=== PATIENT | female | born 1980 | race Caucasian/White ===

== ENCOUNTER 2016-10-03 19:40 | Emergency (ER) | payer OTHER, MEDICAID ==
--- NOTE | 2016-10-03 19:55 | EDPHY ---
H & P Time Seen by Provider: 10/03/16 20:24 HPI/ROS: CHIEF COMPLAINT: Right foot injury HISTORY OF PRESENT ILLNESS: This patient is a 35-year-old female who presents to the Emergency Department complaining of right foot pain and ecchymosis secondary to stubbing her foot into her bed this evening. She took Ibuprofen shortly following the injury without improvement to her pain. She denies paresthesias, lacerations or abrasion, or additional injuries. No history of orthopedic injuries or surgeries to her right foot. She is breast feeding. REVIEW OF SYSTEMS: A ten point review of systems was performed and is negative with the exception of the items mentioned in the HPI. Source: Patient Exam Limitations: No limitations - Personal History Tetanus Vaccine Date: 06/2011 - Medical/Surgical History Other PMH: Asthm; hx of PPD; hx of migraines; former smoker; Gallbladder out 2011; reconstruction surgery on ankle 2007; no problems with anesthesia; hx of UTI with this - Social History Smoking Status: Former smoker Additional Social History: She is here with her . They have their with them, 2 other children. She does not use tobacco or alcohol products. - Physical Exam Exam: General Appearance: Alert. Vital signs reviewed. A focused exam was performed. Respiratory: Lungs are clear to auscultation; no wheezes, rales, or rhonchi. Cardiovascular: Regular rate and rhythm; no murmur, rub, or gallop. Gastrointestinal: Abdomen is soft and nontender. Skin: Warm and dry, no rashes on exposed skin, normal color. Extremities: Tenderness at the base of the 5th toe on the right. There is a small area of ecchymoses in the webspace between the 4th and 5th toes. No obvious swelling or deformity. Neurological: Alert and oriented. Moving all four extremities easily and equally. Pulses: 2+ dorsalis pedis pulses bilaterally. Psychiatric: Normal affect. Constitutional: Initial Vital Signs Temperature (C) 36.9 C 10/03/16 20:00 Heart Rate 77 10/03/16 20:00 Respiratory Rate 20 10/03/16 20:00 Blood Pressure 132/96 H 10/03/16 20:00 O2 Sat (%) 96 10/03/16 20:00 O2 Delivery Mode Room Air Allergies/Adverse Reactions: azithromycin [From Zithromax] Allergy (Verified 10/03/16 19:58) Rash hydrocodone bitartrate [From Lortab] Allergy (Verified 10/03/16 19:58) Swelling/EYES latex [Latex] Allergy (Verified 10/03/16 19:58) Rash Home Medications: Medication Instructions Recorded Albuterol 2 PUFF Q4-6PRN PRN 02/19/11 Zyrtec 20 mg PO DAILY 02/19/11 Citalopram Hydrobromide 10 mg PO DAILY 03/08/16 [Citalopram HBr] Montelukast Sodium [Singulair 10 10 mg PO DAILY 03/08/16 mg (*)] Vit27&Calcium/Iron/FA 1 each PO DAILY 03/08/16 [ Rx 1 Tablet (RX)] Albuterol Sulfate [Proair Hfa] 10/03/16 Ranitidine HCl [Zantac] 10/03/16 Medical Decision Making - Diagnostics Imaging Results: Right foot x-ray reviewed by me in PACs. There is a transverse nondisplaced fracture the base of the proximal 5th phalanx. Imaging: I viewed and interpreted images myself (fracture to proximal phalanx of fifth toe of right foot) ED Course/Re-evaluation: 35-year-old female presents with right foot injury obtained by stubbing her foot into the corner of her bed this evening. She is tender on exam and has ecchymosis of the webspace between the 4th and the fifth toes. Motor and sensation is in tact. Will proceed with x-ray of the right foot. She declines Tylenol for pain at this time. X-ray reviewed by me is positive for fracture to proximal phalanx of fifth toe. I discussed these results with the patient. Her toes will be jose carlos-taped and she will be given rest and ice instructions, and follow-up with her PCP. Differential Diagnosis: I considered a differential diagnosis that includes but is not limited to fracture, dislocation, sprain, contusion, and abrasion. Departure - Departure Disposition: Home, Routine, Self-Care Clinical Impression: Toe fracture Qualifiers: Encounter type: initial encounter Toe: lesser toe Fracture type: closed Phalanx : proximal Fracture alignment: nondisplaced Laterality: right Qualified Code(s) : S92.514A - Nondisplaced fracture of proximal phalanx of right lesser toe(s), initial encounter for closed fracture Condition: Good Instructions: Toe Fracture (ED) Additional Instructions: 1. Jose Carlos-tape toes as advised. 2. Take 650mg Tylenol every 4-6 hours as needed for pain. 3. Follow-up with your PCP for reevaluation next week. 4. Return to the Emergency Department with increased swelling or pain, change in sensation to your foot or toes, or for other serious concerns. Referrals: Castro Magaña MD [Primary Care Provider] - As per Instructions Report Scribed for: Claudia Patel Report Scribed by: Marianne Leslie Date of Report: 10/03/16 Time of Report: 20:24 Physician Review and Approval Statement: 10/05/16 21:16 Portions of this note were transcribed by the medical office technology instructor. I, Dr. Claudia Patel, personally performed the history, physical exam, and medical decision- making; and confirmed the accuracy of the information in the transcribed note.
[2016-10-03 20:05] VITALS: PULSE 77; RESP 20; TEMP 98.4; O2SAT 96
[2016-10-03 21:18] VITALS: BP 125/66
== END 2016-10-03 21:25 | disposition home or self-care (01) ==
LOC: CED 19:40
DX: S92.514A Nondisplaced fracture of proximal phalanx of right lesser toe(s), initial encounter for closed fracture (principal); J45.909 Unspecified asthma, uncomplicated; Z87.891 Personal history of nicotine dependence; Z91.040 Latex allergy status; W22.8XXA Striking against or struck by other objects, initial encounter; Y92.009 Unspecified place in unspecified non-institutional (private) residence as the place of occurrence of the external cause
CPT/HCPCS: 73630-PO

== ENCOUNTER → 2016-12-26 | Outpatient (CLI) | payer OTHER, MEDICAID | LOC: FIMAGING 12:08 | PROVIDERS: ATTEND Obstetrics & Gynecology | DX: N83.201 Unspecified ovarian cyst, right side (principal) ==

== ENCOUNTER 2017-01-08 10:29 | Outpatient (CLI) | payer OTHER, MEDICAID ==
[~2017-01-08 10:29] MED LIST: NS 1,000 ML IV SCH
[2017-01-08] MEDS ORDERED: DEXMEDETOMIDINE HCL 200 MCG in NS 50 ML IV ONE (11:00)
[2017-01-08] MEDS ORDERED: fentaNYL 100 MCG/2 ML INJ ONE (11:51)
[2017-01-08] MEDS ORDERED: FLUMAZENIL 0.5 MG/5 ML MDV IVP ONE (11:51)
[2017-01-08] MEDS ORDERED: MIDAZOLAM 2 MG/2 ML VIAL ONE (11:51)
[2017-01-08] MEDS ORDERED: NALOXONE HCL 0.4 MG/ML INJ ONE (11:51)
[2017-01-08] MEDS ORDERED: LIDOCAINE 1% 300 MG/30 ML SDV ONE (12:48)
[2017-01-08 14:16] VITALS: TEMP 97.9
[2017-01-08 16:09] VITALS: BP 115/71; PULSE 58; RESP 18; O2SAT 95
== END 2017-01-08 16:10 | disposition home or self-care (01) ==
LOC: FIMAGING 10:29
PROVIDERS: ATTEND Radiology Diagnostic Radiology
PROC: 0U903ZZ Drainage of Right Ovary, Percutaneous Approach (ICD-10-PCS; principal; 2017-01-08 12:50)
DX: N83.201 Unspecified ovarian cyst, right side (principal)
CPT/HCPCS: J2250; J2310; J3010

== ENCOUNTER 2017-04-10 11:20 | Emergency (ER) | payer OTHER, MEDICAID ==
--- NOTE | 2017-04-10 11:40 | EDPHY ---
H & P Time Seen by Provider: 04/10/17 11:33 HPI/ROS: CHIEF COMPLAINT: Left leg pain HISTORY OF PRESENT ILLNESS: The patient is a 36-year-old female who comes to the emergency department complaining of pain in her left ziegler ankle. She was walking down the stairs and fell forward about 5-7 steps. She has an abrasion to her left elbow, left ziegler and pain in her left ankle. She denies any head neck or back injury. She is morbidly obese. She was able to walk in here with crutches toe-touch weight-bearing. REVIEW OF SYSTEMS: Constitutional: denies: chills, fever, recent illness, recent injury EENTM: denies: blurred vision, double vision, nose congestion Respiratory: denies: cough, shortness of breath Cardiac: denies: chest pain, irregular heart rate, lightheadedness, palpitations Gastrointestinal/Abdominal: denies: abdominal pain, diarrhea, nausea, vomiting, blood streaked stools Genitourinary: denies: dysuria, frequency, hematuria, pain Musculoskeletal: See HPI Skin: See HPI Neurological: denies: headache, numbness, paresthesia, tingling, dizziness, weakness Hematologic/Lymphatic: denies: blood clots, easy bleeding, easy bruising Immunologic/allergic: denies: HIV/AIDS, transplant EXAM: GENERAL: Well-appearing, well-nourished and in no acute distress. HEAD: Atraumatic, normocephalic. EYES: Pupils equal round and reactive to light, extraocular movements intact, sclera anicteric, conjunctiva are normal. ENT: TMs normal, nares patent, oropharynx clear without exudates. Moist mucous membranes. NECK: Normal range of motion, supple without lymphadenopathy or JVD. LUNGS: Breath sounds clear to auscultation bilaterally and equal. No wheezes rales or rhonchi. HEART: Regular rate and rhythm without murmurs, rubs or gallops. ABDOMEN: Soft, nontender, normoactive bowel sounds. No guarding, no rebound. No masses appreciated. BACK: No CVA tenderness, no spinal tenderness, step-offs or deformities EXTREMITIES: Painful hematoma to left lateral ziegler the. Not open. Mild tenderness to medial malleolus. No visible swelling or deformity. No pain with movement of ankle or toes. No pain with flexion extension. No paresthesias. Normal temperature NEUROLOGICAL: Cranial nerves II through XII grossly intact. Normal speech, normal gait. 5/5 strength, normal movement in all extremities, normal sensation PSYCH: Normal mood, normal affect. SKIN: Abrasion to left ziegler and left elbow Source: Patient Exam Limitations: No limitations - Personal History Tetanus Vaccine Date: 06/2011 - Medical/Surgical History Hx Asthma: Yes Hx Chronic Respiratory Disease: Yes Hx Diabetes: No Hx Cardiac Disease: No Hx Renal Disease: No Hx Cirrhosis: No Hx Alcoholism: No Hx HIV/AIDS: No Hx Splenectomy or Spleen Trauma: No Other PMH: Asthm; hx of PPD; hx of migraines; former smoker; Gallbladder out 2011; reconstruction surgery on ankle 2007; no problems with anesthesia; hx of UTI with this - Family History Significant Family History: No pertinent family hx - Social History Smoking Status: Former smoker Alcohol Use: Sober Drug Use: None Constitutional: Initial Vital Signs Temperature (C) 37.1 C 04/10/17 11:37 Heart Rate 78 04/10/17 11:37 Respiratory Rate 18 04/10/17 11:37 Blood Pressure 126/79 H 04/10/17 11:37 O2 Sat (%) 96 04/10/17 11:37 O2 Delivery Mode Room Air Allergies/Adverse Reactions: azithromycin [From Zithromax] Allergy (Verified 04/10/17 11:35) Rash hydrocodone bitartrate [From Lortab] Allergy (Verified 04/10/17 11:35) Swelling/EYES latex [Latex] Allergy (Verified 04/10/17 11:35) Rash Home Medications: Medication Instructions Recorded Albuterol 2 PUFF Q4-6PRN PRN 02/19/11 Zyrtec 20 mg PO DAILY 02/19/11 Citalopram Hydrobromide 10 mg PO DAILY 03/08/16 [Citalopram HBr] Montelukast Sodium [Singulair 10 10 mg PO DAILY 03/08/16 mg (*)] Albuterol Sulfate [Proair Hfa] 10/03/16 Ranitidine HCl [Zantac] 10/03/16 Advair 500/50 (*) 550 12/31/16 Medical Decision Making - Diagnostics Imaging Results: Imaging Impressions Ankle X-Ray 04/10/17 11:38 Impression: No acute osseous abnormality. LEFT ANKLE, 3 Views, at 11:40 AM: The osseous structures are intact, without a fracture. The ankle mortise has a normal contour. There are prominent posterior calcaneal enthesophytes at both the Achilles tendon and plantar aponeurosis insertion points. There is no ankle joint effusion. There is mild soft tissue swelling. The talar dome is well-contoured, and the subtalar joint is normal. The base of the fifth metatarsal is unremarkable. Impression: There is no acute fracture identified. Tibia/Fibula X-Ray 04/10/17 11:38 Impression: No acute osseous abnormality. LEFT ANKLE, 3 Views, at 11:40 AM: The osseous structures are intact, without a fracture. The ankle mortise has a normal contour. There are prominent posterior calcaneal enthesophytes at both the Achilles tendon and plantar aponeurosis insertion points. There is no ankle joint effusion. There is mild soft tissue swelling. The talar dome is well-contoured, and the subtalar joint is normal. The base of the fifth metatarsal is unremarkable. Impression: There is no acute fracture identified. Imaging: Discussed imaging studies w/ house calls nurse Radiologist ED Course/Re-evaluation: We discussed the x-ray results. The patient is reassured. We will wrapped in an Pierre wrap and she will continue using her crutches toe-touch weight-bearing as tolerated. I will have her follow up with Orthopedics. We discussed indications for returning here. We discussed signs of compartment compression etc. No signs of this currently. Differential Diagnosis: Partial list of the Differential diagnosis considered include but were not limited to; contusion, abrasion and although unlikely based on the history and physical exam, I also considered fracture, dislocation, compartment syndrome. I discussed these differential diagnoses and the plan with the patient as well as the usual and expected course. The patient understands that the diagnosis is provisional and that in medicine we are not always correct and that further workup is often warranted. Usual and customary warnings were given. All of the patient's questions were answered. The patient was instructed to return to the emergency department should the symptoms at all worsen or return, otherwise to followup with the physician as we discussed. Departure - Departure Disposition: Home, Routine, Self-Care Clinical Impression: Abrasion, left lower leg, initial encounter Hematoma of left lower extremity Qualifiers: Encounter type: initial encounter Qualified Code(s): S80.12XA - Contusion of left lower leg, initial encounter Condition: Fair Instructions: Abrasion (ED), Hematoma (ED) Referrals: Castro Magaña MD [Primary Care Provider] - As per Instructions ED,PHYSICIAN ONDUTY [Medical Doctor] - 1 day, if not improved
[2017-04-10 11:42] VITALS: BP 126/79; PULSE 78; RESP 18; TEMP 98.8; O2SAT 96
== END 2017-04-10 12:19 | disposition home or self-care (01) ==
LOC: CED 11:20
DX: S80.12XA Contusion of left lower leg, initial encounter (principal); S80.812A Abrasion, left lower leg, initial encounter; J45.909 Unspecified asthma, uncomplicated; Z87.891 Personal history of nicotine dependence; Z91.040 Latex allergy status; W10.9XXA Fall (on) (from) unspecified stairs and steps, initial encounter; Y99.8 Other external cause status; Y93.01 Activity, walking, marching and hiking
CPT/HCPCS: 73590-PO; 73610-PO

== ENCOUNTER → 2018-07-23 | Outpatient (CLI) | payer OTHER, MEDICAID | LOC: BMCIMAGING 10:03 | PROVIDERS: ATTEND Internal Medicine Rheumatology | DX: M25.541 Pain in joints of right hand (principal); M25.542 Pain in joints of left hand ==

== ENCOUNTER 2018-08-22 15:57 | Emergency (ER) | payer OTHER, MEDICAID ==
[2018-08-22] MEDS ORDERED: NS 1,000 ML IV ONE (16:10)
--- NOTE | 2018-08-22 16:10 | EDPHY ---
H & P Stated Complaint: headache, hx migraines, nausea, weakness, photp/phonophobia Time Seen by Provider: 08/22/18 16:10 HPI/ROS: HPI CHIEF COMPLAINT: Frontal throbbing headache. HISTORY OF PRESENT ILLNESS: Patient is a 37-year-old female, has a history of rheumatoid arthritis, has been and is to the emergency room with a frontal throbbing headache. The patient has a frontal throbbing headache that is gradual in onset around 10:00 a.m. This morning. It is not thunderclap it is not the worst headache of her life. She does report to me that it feels similar previous headaches. However this 1 is more stronger than normal. She took Tylenol however this did not help. She denies any vomiting, denies neck pain, denies fever, denies chest pain or shortness of breath. Past Medical History: Denies significant medical history except for rheumatoid arthritis, asthma and migraine headaches Past Surgical History: Gallbladder Social History: Denies drugs alcohol tobacco Family History: Noncontributory ROS REVIEW OF SYSTEMS: 10 Systems were reviewed and negative with the exception of the elements mentioned in the history of present illness. Exam Constitutional triage nursing summary reviewed, vital signs reviewed, awake/ alert. Eyes normal conjunctivae and sclera, EOMI, PERRLA. HENT normal inspection, atraumatic, moist mucus membranes, no epistaxis, neck supple/ no meningismus, no raccoon eyes. Respiratory clear to auscultation bilaterally, normal breath sounds, no respiratory distress, no wheezing. Cardiovascular rate normal, regular rhythm, no murmur, no edema, distal pulses normal. Gastrointestinal soft, non-tender, no rebound, no guarding, normal bowel sounds, no distension, no pulsatile mass. Genitourinary no CVA tenderness. Musculoskeletal no midline vertebral tenderness, full range of motion, no calf swelling, no tenderness of extremities, no meningismus, good pulses, neurovascularly intact. Skin pink, warm, & dry, no rash, skin atraumatic. Neurologic normal neurological exam, nonfocal, awake, alert and oriented x 3, AAOx3, moves all 4 extremities equally, motor intact, sensory intact, CN II-XII intact, normal cerebellar, normal vision, normal speech. Psychiatric normal mood/affect. Heme/Lymph/Immune no lymphadenopathy. Differential Diagnosis: Includes but is not limited to in a particular order migraine headache, tension headache, cluster headache, intracranial bleed, meningitis, encephalitis Medical Decision Making: Plan for this patient IV establishment IV fluid bolus , migraine cocktail, CT scan head without contrast due to headache and no previous imaging, and re-evaluate. Re-evaluation: Patient in emergency room ordered regular blood work, IV fluids, migraine cocktail, CT scan head without contrast due to headache in a previous imaging. Clinically this patient here in emergency room as a normal neurological exam and a frontal throbbing headache. CT scan head without contrast called to me by Dr. Ladd negative for acute abnormality. 1842: On re-examination at this time the patient is resting comfortably she reports that her initial headache was 10/10 is much improved 3/10 at this time. Her neurological exam is unremarkable she has no focal neuro deficit she is feeling much better. There is no meningeal signs on exam. Specifically the patient does not have a fever, is not vomiting, a nonfocal normal neurological exam. Neck is supple. Her CT scan is unremarkable for bleed or tumor. She is feeling much better after our migraine cocktail would like to go home she is asking for discharge Return precautions discussed with her She understands return emergency room develops worsening headache, fever, vomiting, not doing well I do recommend she follows up with her primary care doctor Source: Patient - Personal History LMP (Females 10-55): 1-7 Days Ago Current Tetanus/Diphtheria Vaccine: Yes Current Tetanus Diphtheria and Acellular Pertussis (TDAP): Yes Tetanus Vaccine Date: 06/2011 - Medical/Surgical History Hx Asthma: Yes Hx Chronic Respiratory Disease: Yes Hx Diabetes: No Hx Cardiac Disease: No Hx Renal Disease: No Hx Cirrhosis: No Hx Alcoholism: No Hx HIV/AIDS: No Hx Splenectomy or Spleen Trauma: No Other PMH: Asthm; hx of PPD; hx of migraines; former smoker; Gallbladder out 2011; reconstruction surgery on ankle 2007; RA, stenosis of the spine, carpal tunnel, right shoulder - Social History Smoking Status: Former smoker Constitutional: Initial Vital Signs Temperature (C) 36.5 C 08/22/18 15:58 Heart Rate 63 08/22/18 15:58 Respiratory Rate 16 08/22/18 15:58 Blood Pressure 158/103 H 08/22/18 15:58 O2 Sat (%) 97 08/22/18 15:58 O2 Delivery Mode Room Air Allergies/Adverse Reactions: azithromycin [From Zithromax] Allergy (Verified 08/22/18 16:03) Rash hydrocodone bitartrate [From Lortab] Allergy (Verified 08/22/18 16:03) Swelling/EYES latex [Latex] Allergy (Verified 08/22/18 16:03) Rash Home Medications: Medication Instructions Recorded Albuterol 2 PUFF Q4-6PRN PRN 02/19/11 Zyrtec 20 mg PO DAILY 02/19/11 Citalopram Hydrobromide 10 mg PO DAILY 03/08/16 [Citalopram HBr] Montelukast Sodium [Singulair 10 10 mg PO DAILY 03/08/16 mg (*)] Albuterol Sulfate [Proair Hfa] 10/03/16 Ranitidine HCl [Zantac] 10/03/16 Advair 500/50 (*) 550 12/31/16 Acet/Caffeine/Buta Fioricet 1 each PO Q6 #20 tab 08/22/18 [Fioricet] Ra Medication 08/22/18 Medical Decision Making - Diagnostics Imaging Results: Imaging Impressions Head CT 08/22/18 16:24 Impression: Normal brain. No intracranial hemorrhage, edema, or mass. Findings discussed with Emergency Department physician, Leonard Patel M.D., on August 22, 2018 at 1743. - Data Points Laboratory Results: Laboratory Results 08/22/18 17:10 08/22/18 17:10 08/22/18 08/22/18 08/22/18 17:10 17:10 17:10 WBC 7.12 10^3/uL 10^3/uL (3.80-9.50) RBC 4.21 10^6/uL 10^6/uL (4.18-5.33) Hgb 12.6 g/dL g/dL (12.6-16.3) Hct 38.7 % % (38.0-47.0) MCV 91.9 fL fL (81.5-99.8) MCH 29.9 pg pg (27.9-34.1) MCHC 32.6 g/dL g/dL (32.4-36.7) RDW 12.2 % % (11.5-15.2) Plt Count 333 10^3/uL 10^3/uL (150-400) MPV 9.4 fL fL (8.7-11.7) Neut % (Auto) 73.3 % % (39.3-74.2) Lymph % (Auto) 18.3 % % (15.0-45.0) [place] % (Auto) 5.6 % % (4.5-13.0) Eos % (Auto) 2.0 % % (0.6-7.6) Baso % (Auto) 0.4 % % (0.3-1.7) Nucleat RBC Rel Count 0.0 % % (0.0-0.2) Absolute Neuts (auto) 5.22 10^3/uL 10^3/uL (1.70-6.50) Absolute Lymphs (auto) 1.30 10^3/uL 10^3/uL (1.00-3.00) Absolute Monos (auto) 0.40 10^3/uL 10^3/uL (0.30-0.80) Absolute Eos (auto) 0.14 10^3/uL 10^3/uL (0.03-0.40) Absolute Basos (auto) 0.03 10^3/uL 10^3/uL (0.02-0.10) Absolute Nucleated RBC 0.00 10^3/uL 10^3/uL (0-0.01) Immature Gran % 0.4 % % (0.0-1.1) Immature Gran # 0.03 10^3/uL 10^3/uL (0.00-0.10) Sodium 140 mEq/L mEq/L (135-145) Potassium 4.0 mEq/L mEq/L (3.5-5.2) Chloride 109 mEq/L mEq/L (97-110) Carbon Dioxide 21 mEq/l L mEq/l (22-31) Anion Gap 10 mEq/L mEq/L (6-14) BUN 12 mg/dL mg/dL (7-23) Creatinine 0.6 mg/dL mg/dL (0.6-1.0) Estimated GFR > 60 Glucose 95 mg/dL mg/dL (70-100) Calcium 9.2 mg/dL mg/dL (8.5-10.4) Beta HCG, Qual NEGATIVE Medications Given: Discontinued Medications Dexamethasone (Decadron Injection) 10 mg IVP EDNOW ONE Stop: 08/22/18 16:25 Last Admin: 08/22/18 17:15 Dose: 10 mg Diphenhydramine HCl (Benadryl Injection) 50 mg IVP EDNOW ONE Stop: 08/22/18 16:25 Last Admin: 08/22/18 17:15 Dose: 50 mg Sodium Chloride (Ns) 1,000 mls @ 0 mls/hr IV ONCE ONE; Wide Open PRN Reason: Protocol Stop: 08/22/18 16:11 Last Admin: 08/22/18 17:14 Dose: 1,000 mls Ketorolac Tromethamine (Toradol) 30 mg IVP EDNOW ONE Stop: 08/22/18 16:25 Last Admin: 08/22/18 17:15 Dose: 30 mg Departure - Departure Disposition: Home, Routine, Self-Care Clinical Impression: Headache Condition: Good Instructions: Acute Headache (ED) Additional Instructions: 1. Rest and stay well-hydrated 2. Drink lots of fluids. 3. Return to the emergency room if worsening symptoms this includes worsening headache, fever, vomiting, not doing well Referrals: Castro Magaña MD [Primary Care Provider] - As per Instructions Prescriptions: Acet/Caffeine/Buta Fioricet [Fioricet] 1 each PO Q6 #20 tab
[2018-08-22] MEDS ORDERED: DEXAMETHASONE 10 MG/ML VIAL IVP ONE (16:24)
[2018-08-22] MEDS ORDERED: KETOROLAC 30 MG/1 ML SDV IVP ONE (16:24)
[2018-08-22 17:24] LABS: PLATELET COUNT 333 10^3/uL (150-400)
[2018-08-22 19:11] VITALS: BP 129/72
== END 2018-08-22 19:09 | disposition home or self-care (01) ==
DX: R51 Headache (principal); E86.9 Volume depletion, unspecified
CPT/HCPCS: 96374; J1100; J1200; J1885